=== PATIENT | male | born 1995 | race Caucasian/White ===

== ENCOUNTER 2018-03-30 10:02 | Emergency (ER) | payer SELFPAY ==
[~2018-03-30] VITALS: Ht 172.7 cm; Wt 63.5 kg
--- NOTE | 2018-03-30 11:46 | Diagnostic Imaging Report ---
Indication: Injury to right foot. AP, oblique, lateral views of the right foot are obtained. No fracture or acute bony abnormality seen. Joint spaces are unremarkable. Impression: Negative right foot. Dictated by: Dictated on workstation # [id number]
--- NOTE | 2018-03-30 11:46 | ED Lower Extremity ---
General Stated Complaint: FOOT INJ Source: patient Exam Limitations: no limitations History of Present Illness Date Seen by Provider: Mar 30, 2018 Time Seen by Provider: 11:43 Initial Comments To ER with reports of a right foot injury. He kicked a wall last night after he found out that his fiance cheated on him while he was in residential for 30 days. Complains of pain to this area. Onset: just prior to arrival Severity: moderate Pain/Injury Location: right foot Modifying Factors: Improves With Movement Allergies and Home Medications Patient Home Medication List Home Medication List Reviewed: Yes Review of Systems Constitutional: see HPI EENTM: see HPI Respiratory: no symptoms reported Cardiovascular: no symptoms reported Genitourinary: no symptoms reported Musculoskeletal: see HPI Skin: no symptoms reported Psychiatric/Neurological: No Symptoms Reported Physical Exam Vital Signs Vital Signs - First Documented 03/30/18 11:45 Temp 98.1 Pulse 88 Resp 18 B/P (MAP) 112/57 (75) Pulse Ox 97 Capillary Refill : Height, Weight, BMI Height: '" Weight: lbs. oz. kg; BMI Method: General Appearance: WD/WN, no apparent distress HEENT: PERRL/EOMI, normal ENT inspection Respiratory: normal breath sounds, no respiratory distress, no accessory muscle use Gastrointestinal: normal bowel sounds, non tender Hips: bilateral hip non-tender, bilateral hip normal inspection, bilateral hip normal range of motion Legs: bilateral leg non-tender, bilateral leg normal inspection, bilateral leg normal range of motion Knees: bilateral knee non-tender, bilateral knee normal inspection, bilateral knee normal range of motion Ankles: bilateral ankle non-tender, bilateral ankle normal inspection, bilateral ankle normal range of motion Feet: right foot ecchymosis (Small amount of ecchymosis over the dorsal aspect of the foot near the distal third and fourth metatarsals and a small amount of bruising dime-sized area proximal fourth and fifth metatarsal no pain over the lateral malleolus or pain in the ankle. ), right foot pain, right foot soft tissue tenderness Neurologic/Psychiatric: alert, normal mood/affect, oriented x 3 Skin: normal color, warm/dry Progress/Results/Core Measures Results/Orders My Orders Orders - KILO CHANDLER APRN Foot, Right, 3 View (03/30/18 11:14) Vital Signs/I&O 03/30/18 11:45 Temp 98.1 Pulse 88 Resp 18 B/P (MAP) 112/57 (75) Pulse Ox 97 Departure Impression Primary Impression: Contusion of foot Disposition: HOME, SELF-CARE Condition: Stable Departure-Patient Inst. Decision time for Depature: 11:45 Referrals: UNKNOWN (PCP) Primary Care Physician Patient Instructions: Contusion (DC) Add. Discharge Instructions: 1. Tylenol and Motrin for pain control 2. Elevate foot as much as possible. Crutches as needed for pain with walking. When you're able to walk without pain you may stop using the crutches. Work/School Note: Work Release Form Date Seen in the Emergency Department: Mar 30, 2018 Return to Work: Apr 02, 2018 KILO CHANDLER APRN Mar 30, 2018 11:46
[2018-03-30 12:09] VITALS: BP 112/57
== END 2018-03-30 12:09 | disposition home or self-care (01) ==
LOC: ER 10:03
DX: S90.31XA Contusion of right foot, initial encounter (principal); W22.01XA Walked into wall, initial encounter
CPT/HCPCS: 73630